=== PATIENT | female | born 1950 | race Native Hawaiian/Other Pacific Islander ===

== ENCOUNTER 2017-10-22 09:51 | Outpatient (CLI) | payer OTHER | END 2017-10-22 19:38 | disposition home or self-care (01) | LOC: RAD 09:51 | DX: R07.89 Other chest pain (principal); M25.512 Pain in left shoulder ==

== ENCOUNTER 2018-12-18 15:57 | Emergency (ER) | payer OTHER ==
[~2018-12-18] VITALS: Ht 162.6 cm; Wt 90.7 kg
[2018-12-18 16:15] VITALS: BP 167/91; TEMP 97.9
== END 2018-12-18 17:10 | disposition home or self-care (01) ==
LOC: ED 15:57
DX: R11.2 Nausea with vomiting, unspecified (principal); R19.7 Diarrhea, unspecified
CPT/HCPCS: 99281

== ENCOUNTER 2019-01-11 07:39 | Outpatient (CLI) | payer OTHER | END 2019-01-11 23:25 | disposition home or self-care (01) | LOC: LABW 07:39 | PROVIDERS: Nurse Practitioner | DX: R73.9 Hyperglycemia, unspecified (principal); R53.82 Chronic fatigue, unspecified; E78.00 Pure hypercholesterolemia, unspecified; E55.9 Vitamin D deficiency, unspecified | CPT/HCPCS: 36415; 80061; 82306; 83036; 84443 ==

== ENCOUNTER 2019-02-24 05:28 | Emergency (ER) | payer OTHER ==
[~2019-02-24] VITALS: Ht 162.6 cm; Wt 86.2 kg
[2019-02-24 05:28] VITALS: TEMP 97.7
[2019-02-24 08:11] VITALS: BP 148/84
== END 2019-02-24 08:11 ==
LOC: ED 05:37
DX: K52.89 Other specified noninfective gastroenteritis and colitis (principal); R21 Rash and other nonspecific skin eruption; R11.2 Nausea with vomiting, unspecified; R10.84 Generalized abdominal pain
CPT/HCPCS: 74022; 96372; 99283; J1885; J2405

== ENCOUNTER 2019-08-25 16:24 | Outpatient (CLI) | payer OTHER ==
[2019-08-25 16:27] LABS: POTASSIUM 4.4 mmol/L (3.6-5.2)
== END 2019-08-25 22:05 | disposition home or self-care (01) ==
LOC: LAB 16:24
PROVIDERS: Family Medicine
DX: E87.6 Hypokalemia (principal)
CPT/HCPCS: 80048

== ENCOUNTER 2019-09-01 12:50 | Outpatient (CLI) | payer OTHER ==
[2019-09-01 14:02] LABS: PLATELET COUNT 252 K/uL (152-353)
[2019-09-01 14:24] LABS: POTASSIUM 4.7 mmol/L (3.6-5.2)
== END 2019-09-01 20:14 | disposition home or self-care (01) ==
LOC: LAB 12:50
PROVIDERS: Nurse Practitioner Family
DX: Z00.00 Encounter for general adult medical examination without abnormal findings (principal); E11.9 Type 2 diabetes mellitus without complications; E55.9 Vitamin D deficiency, unspecified; I10 Essential (primary) hypertension; E78.00 Pure hypercholesterolemia, unspecified; R53.82 Chronic fatigue, unspecified; Z79.899 Other long term (current) drug therapy
CPT/HCPCS: 80053; 80061; 83036; 84439; 84443; 85027

== ENCOUNTER 2019-09-20 17:47 | Outpatient (CLI) | payer OTHER | END 2019-09-20 17:48 | disposition short-term general hospital (02) | LOC: AMB 17:47 | DX: M54.2 Cervicalgia (principal); M54.89 Other dorsalgia; R10.9 Unspecified abdominal pain; V49.40XA Driver injured in collision with unspecified motor vehicles in traffic accident, initial encounter; Y92.89 Other specified places as the place of occurrence of the external cause | CPT/HCPCS: A0425; A0429 ==

== ENCOUNTER 2019-09-20 17:50 | Emergency (ER) | payer OTHER ==
[~2019-09-20] VITALS: Ht 162.6 cm; Wt 96.6 kg
[2019-09-20 21:25] VITALS: BP 167/74; TEMP 98.6
== END 2019-09-20 21:25 | disposition home or self-care (01) ==
LOC: ED 17:53
DX: S33.5XXA Sprain of ligaments of lumbar spine, initial encounter (principal); S13.8XXA Sprain of joints and ligaments of other parts of neck, initial encounter; R07.81 Pleurodynia; V49.40XA Driver injured in collision with unspecified motor vehicles in traffic accident, initial encounter; Y92.89 Other specified places as the place of occurrence of the external cause
CPT/HCPCS: 96372; 99283; J1885

== ENCOUNTER 2020-02-07 16:27 | Outpatient (CLI) | payer OTHER | END 2020-02-07 19:40 | disposition home or self-care (01) | LOC: RAD 16:27 | DX: M25.562 Pain in left knee (principal); W19.XXXA Unspecified fall, initial encounter ==

== ENCOUNTER 2021-04-25 07:48 | Outpatient (CLI) | payer OTHER | END 2021-04-25 21:22 | disposition home or self-care (01) | LOC: CT 07:48 | PROVIDERS: ATTEND Nurse Practitioner Family | DX: R31.9 Hematuria, unspecified (principal); R10.84 Generalized abdominal pain; R50.9 Fever, unspecified ==

== ENCOUNTER 2021-10-09 11:48 | Outpatient (CLI) | payer OTHER | END 2021-10-09 19:03 | disposition home or self-care (01) | LOC: RAD 11:48 | PROVIDERS: ATTEND Nurse Practitioner Family | DX: M25.512 Pain in left shoulder (principal); W19.XXXA Unspecified fall, initial encounter ==

== ENCOUNTER 2022-04-11 15:03 | Emergency (ER) | payer OTHER ==
[~2022-04-11] VITALS: Ht 162.6 cm; Wt 96.6 kg
[2022-04-11 15:04] VITALS: BP 171/101; TEMP 98.2
== END 2022-04-11 16:16 | disposition home or self-care (01) ==
LOC: ED 15:03
DX: S70.01XA Contusion of right hip, initial encounter (principal); W01.0XXA Fall on same level from slipping, tripping and stumbling without subsequent striking against object, initial encounter; Y92.89 Other specified places as the place of occurrence of the external cause
CPT/HCPCS: 96372; 99283; J2270; J2405

== ENCOUNTER 2022-05-02 16:45 | Emergency (ER) | payer OTHER ==
[~2022-05-02] VITALS: Ht 162.6 cm; Wt 99.8 kg
[2022-05-02 19:28] VITALS: BP 148/90; TEMP 98.2
== END 2022-05-02 19:28 | disposition home or self-care (01) ==
LOC: ED 16:45
DX: B35.4 Tinea corporis (principal); E11.9 Type 2 diabetes mellitus without complications; Z79.4 Long term (current) use of insulin
CPT/HCPCS: 96372; 99282; J1200

== ENCOUNTER 2022-05-18 22:55 | Emergency (ER) | payer OTHER ==
[~2022-05-18] VITALS: Ht 162.6 cm; Wt 99.8 kg
[2022-05-18 23:03] VITALS: TEMP 98.1
[2022-05-19 00:04] LABS: PLATELET COUNT 205 K/uL (152-353)
[2022-05-19 00:13] LABS: POTASSIUM 3.6 mmol/L (3.6-5.2)
[2022-05-19 02:30] VITALS: BP 159/78
== END 2022-05-19 02:30 | disposition home or self-care (01) ==
LOC: ED 22:55
PROVIDERS: Emergency Medicine
DX: R10.13 Epigastric pain (principal); E11.65 Type 2 diabetes mellitus with hyperglycemia; E66.8 Other obesity; Z79.899 Other long term (current) drug therapy
CPT/HCPCS: 36415; 80053; 80307; 81002; 82150; 83690; 85027; 96372; 99284; J1885; J2175; J2405; J3490

== ENCOUNTER 2022-06-12 11:16 | Observation (INO) | payer OTHER ==
[~2022-06-12] VITALS: Ht 162.6 cm; Wt 98.7 kg
[2022-06-12] VITALS (7 sets, daily range): BP systolic 118–155; BP diastolic 57–94; TEMP 97.4–98.4; Ht 162.6 cm; Wt 98.7 kg
[2022-06-12 11:59] LABS: PLATELET COUNT 231 K/uL (152-353)
[2022-06-12] MEDS ORDERED: CLEOCIN150 MG PO (14:08)
[2022-06-12] MEDS ORDERED: HYDR25TA60 PO (14:08)
[2022-06-12] MEDS ORDERED: METO100T37 PO (14:09)
[2022-06-12] MEDS ORDERED: HYDROXYZINE HYD25 MG PO (14:12)
[2022-06-12] MEDS ORDERED: METFTAB PO (14:13)
[2022-06-12] MEDS ORDERED: TRIAMCINOLON0.025 % TOP (14:14)
[2022-06-13 04:00] VITALS: BP 116/63; TEMP 97.6
[2022-06-13 08:00] VITALS: BP 131/62; TEMP 97.9
[2022-06-13 12:00] VITALS: BP 104/54; TEMP 97.9
[2022-06-13 16:00] VITALS: BP 112/63; TEMP 98.2
[2022-06-13 20:00] VITALS: BP 104/53; TEMP 98.3
[2022-06-14 00:02] VITALS: BP 131/56; BP 145/69; TEMP 97.9; TEMP 98
[2022-06-14 04:00] VITALS: BP 136/58; TEMP 98
[2022-06-14 05:16] LABS: PLATELET COUNT 190 K/uL (152-353)
[2022-06-14 05:22] LABS: POTASSIUM 3.2 mmol/L (3.6-5.2)
[2022-06-14 08:12] VITALS: BP 151/69; TEMP 97.6
[2022-06-14 11:55] VITALS: BP 135/51; TEMP 98.3
[2022-06-14 16:26] VITALS: BP 114/61; TEMP 97.8
[2022-06-14 20:00] VITALS: BP 145/61; TEMP 98
[2022-06-15] VITALS: BP 151/53; TEMP 97.4
[2022-06-15 04:00] VITALS: BP 131/56; TEMP 97.5
[2022-06-15 08:00] VITALS: BP 142/53; TEMP 98
[2022-06-15] MEDS ORDERED: CLIN300C PO (08:08)
[2022-06-15] MEDS ORDERED: ONDA4TAB3 PO (08:09)
[2022-06-15] MEDS ORDERED: LEVO250T2 PO (08:09)
[2022-06-15] MEDS ORDERED: HYDR5TAB9 PO (08:11)
== END 2022-06-15 10:20 | disposition home or self-care (01) ==
LOC: ED 11:16 → MED/SURG 13:00
PROVIDERS: Emergency Medicine Emergency Medical Services; ADMIT Internal Medicine; ATTEND Internal Medicine
DX: L03.113 Cellulitis of right upper limb (principal); I10 Essential (primary) hypertension; E11.65 Type 2 diabetes mellitus with hyperglycemia
CPT/HCPCS: 36415; 80048; 80053; 80202; 82948; 83605; 85027; 87040; 87635; 96360; 96361; 96365; 96366; 96367; 96372; 96375; 96376; 99220; 99284; G0378; J1815; J2270; J2405; J3370; Q9963; U0003

== ENCOUNTER 2022-11-05 21:19 | Emergency (ER) | payer OTHER ==
[~2022-11-05] VITALS: Ht 162.6 cm; Wt 113.4 kg
[~2022-11-05 21:19] MED LIST: CLEOCIN150 MG PO; CLIN300C PO; HYDR25TA60 PO; HYDR5TAB9 PO; HYDROXYZINE HYD25 MG PO; LEVO250T2 PO; METFTAB PO; METO100T37 PO; ONDA4TAB3 PO; TRIAMCINOLON0.025 % TOP
[2022-11-05 21:47] LABS: PLATELET COUNT 258 K/uL (152-353)
[2022-11-05 21:54] LABS: POTASSIUM 4.1 mmol/L (3.6-5.2)
[2022-11-06 00:40] VITALS: BP 148/78; TEMP 98.1
== END 2022-11-06 00:45 | disposition home or self-care (01) ==
LOC: ED 21:19
PROVIDERS: Emergency Medicine
DX: N20.0 Calculus of kidney (principal)
CPT/HCPCS: 36415; 80053; 81002; 83690; 85027; 96361; 96374; 96375; 99284; J2270; J2405

== ENCOUNTER 2022-11-12 08:24 | Outpatient (CLI) | payer OTHER | END 2022-11-12 19:18 | disposition home or self-care (01) | LOC: NM 08:24 | PROVIDERS: ATTEND Nurse Practitioner Family | DX: R93.5 Abnormal findings on diagnostic imaging of other abdominal regions, including retroperitoneum (principal); R10.9 Unspecified abdominal pain; K80.20 Calculus of gallbladder without cholecystitis without obstruction | CPT/HCPCS: A9537 ==

== ENCOUNTER 2022-11-20 15:06 | Emergency (ER) | payer OTHER ==
[~2022-11-20] VITALS: Ht 162.6 cm; Wt 86.2 kg
[2022-11-20 15:06] VITALS: TEMP 98.9
[2022-11-20 17:39] VITALS: BP 171/67
== END 2022-11-20 17:55 | disposition home or self-care (01) ==
LOC: ED 15:06
DX: S00.03XA Contusion of scalp, initial encounter (principal); S10.83XA Contusion of other specified part of neck, initial encounter; S30.0XXA Contusion of lower back and pelvis, initial encounter; R07.89 Other chest pain; R10.819 Abdominal tenderness, unspecified site; W01.198A Fall on same level from slipping, tripping and stumbling with subsequent striking against other object, initial encounter; Y92.511 Restaurant or cafe as the place of occurrence of the external cause
CPT/HCPCS: 96372; 99284; J1885

== ENCOUNTER 2022-11-29 11:29 | Emergency (ER) | payer OTHER ==
[~2022-11-29] VITALS: Ht 162.6 cm; Wt 99.3 kg
[2022-11-29 11:29] VITALS: TEMP 97.7
[2022-11-29 13:25] VITALS: BP 156/80
== END 2022-11-29 13:25 | disposition home or self-care (01) ==
LOC: ED 11:29
PROC: 2W39X1Z Immobilization of Left Upper Extremity using Splint (ICD-10-PCS; principal; 2022-11-29)
DX: S42.292A Other displaced fracture of upper end of left humerus, initial encounter for closed fracture (principal); W01.0XXA Fall on same level from slipping, tripping and stumbling without subsequent striking against object, initial encounter; Y92.481 Parking lot as the place of occurrence of the external cause
CPT/HCPCS: 99283

== ENCOUNTER 2023-01-19 22:07 | Emergency (ER) | payer OTHER ==
[~2023-01-19] VITALS: Ht 162.6 cm; Wt 95.3 kg
[2023-01-19 22:30] VITALS: TEMP 98.7
[2023-01-20 00:35] VITALS: BP 170/77
== END 2023-01-20 00:35 | disposition home or self-care (01) ==
LOC: ED 22:07
DX: S20.211A Contusion of right front wall of thorax, initial encounter (principal); S22.31XA Fracture of one rib, right side, initial encounter for closed fracture; W01.190A Fall on same level from slipping, tripping and stumbling with subsequent striking against furniture, initial encounter; Y93.F2 Activity, caregiving, lifting; Y92.89 Other specified places as the place of occurrence of the external cause
CPT/HCPCS: 96372; 99282; J1885

== ENCOUNTER 2023-01-27 08:43 | Outpatient (CLI) | payer OTHER | END 2023-01-27 21:05 | LOC: RAD 08:43 | PROVIDERS: ATTEND Nurse Practitioner Family | DX: M25.552 Pain in left hip (principal); M25.551 Pain in right hip; M25.562 Pain in left knee; M25.561 Pain in right knee; M25.50 Pain in unspecified joint; W19.XXXA Unspecified fall, initial encounter ==